=== PATIENT | female | born 1995 | race Caucasian/White ===

== ENCOUNTER 2020-11-26 14:56 | Emergency (ER) | payer OTHER ==
[~2020-11-26 14:56] MED LIST: AMOXICILLIN500 M2 PO; NAPROSYN375 MG PO
[2020-11-26] MEDS ORDERED: AMOXICILLIN500 M2 PO (17:22)
== END 2020-11-26 17:30 | disposition home or self-care (01) ==
LOC: FER 14:56
DX: K05.219 Aggressive periodontitis, localized, unspecified severity (principal); K02.9 Dental caries, unspecified; F17.210 Nicotine dependence, cigarettes, uncomplicated
CPT/HCPCS: 99283; Q0163